=== PATIENT | male | born 1995 | race African-American/Black ===

== ENCOUNTER 2018-12-05 15:28 | Emergency (ER) | payer BC ==
[~2018-12-05] VITALS: Ht 177.8 cm; Wt 59.0 kg
[2018-12-05 15:34] VITALS: BP 130/72
== END 2018-12-05 20:53 | disposition left against medical advice (07) ==
LOC: ER 15:28
DX: Z53.21 Procedure and treatment not carried out due to patient leaving prior to being seen by health care provider (principal)